=== PATIENT | female | born 2000 | race Caucasian/White ===

== ENCOUNTER 2024-08-02 16:03 | Emergency (ER) | payer MEDICAID ==
[~2024-08-02] VITALS: Ht 165.1 cm; Wt 64.0 kg
[2024-08-02 16:09] VITALS: TEMP 97.9
[2024-08-02] MEDS ORDERED: ESOM20CA31 PO (16:15)
[2024-08-02] MEDS ORDERED: FAMO20 PO (16:15)
[2024-08-02 16:39] LABS: BASOPHILS % (AUTO) 0.3 % (0.0-2.0); EOSINOPHILS % (AUTO) 0 % (1.0-6.0); HEMATOCRIT 39.5 % (36-46); HEMOGLOBIN 13.4 g/dL (12.0-16.0); LYMPHOCYTES # (AUTO) 0.8 K/uL (1.0-4.8); LYMPHOCYTES % (AUTO) 8.7 % (22.0-44.0); MEAN CORPUSCULAR HEMOGLOBIN 31.2 pg (26.0-34.0); MEAN CORPUSCULAR HGB CONC 33.9 G/dL (31.0-37.0); MEAN CORPUSCULAR VOLUME 92 fL (80-100); MONOCYTES # (AUTO) 0.4 K/uL (0.1-1.0); MONOCYTES % (AUTO) 4.3 % (2.0-9.0); NEUTROPHILS # (AUTO) 7.9 K/uL (1.8-7.7); PLATELET COUNT (AUTO) 289 K/uL (150-450); RED BLOOD CELL COUNT(AUTO) 4.29 MIL/uL (4.00-5.20); RED CELL DISTRIBUTION WIDTH 13.8 % (11.5-14.5); WHITE BLOOD COUNT (AUTO) 9.1 K/uL (4.5-11.0)
[2024-08-02] MEDS ORDERED: FAMO40TA7 PO (16:39)
[2024-08-02] MEDS ORDERED: ESOM40CA66 PO (16:39)
[2024-08-02 16:41] LABS: NEUTROPHILS % (AUTO) 86.7 % (40.0-70.0)
[2024-08-02 16:56] LABS: ALANINE AMINOTRANSFERASE 20 U/L (12-78); ALBUMIN 4.3 g/dL (3.4-5.0); ALKALINE PHOSPHATASE 88 U/L (46-116); ANION GAP 16 mmol/L (8-16); ASPARTATE AMINOTRANSFERASE 23 U/L (15-37); CARBON DIOXIDE 22 mmol/L (22-29); CHLORIDE 100 mmol/L (98-107); CREATININE 0.68 mg/dL (0.60-1.30); GLOMERULAR FILTR. RATE CALC > 60 mL/min (>60); GLUCOSE,RANDOM 102 mg/dL (70-110); HCG,QUANTITATIVE < 1 mIU/mL (0-6); LIPASE 16 U/L (16-77); POTASSIUM 3.5 mmol/L (3.5-5.1); SODIUM SERUM 138 mmol/L (136-145); UREA NITROGEN, BLOOD 9 mg/dL (7-18)
[2024-08-02] MEDS: MAG HYDROX/ALUMINUM HYD/SIMETH 30 ML SUSPENSION UDCUP PO ONE (16:56)
[2024-08-02] MEDS: ONDANSETRON HCL 4 MG/2 ML VIAL IVP ONE (16:56)
[2024-08-02] MEDS: SODIUM CHLORIDE 0.9% 1,000 ML IV ONE (16:56)
[2024-08-02 17:01] LABS: CALCIUM, TOTAL 9.6 mg/dL (8.8-10.5)
[2024-08-02] MEDS: FAMOTIDINE 20 MG/2 ML VIAL IVP ONE (17:08)
[2024-08-02 17:13] LABS: APPEARANCE,URINE CLEAR (CLEAR); BILIRUBIN,URINE NEGATIVE (NEGATIVE); COLOR,URINE LIGHT YELLOW (YELLOW); GLUCOSE, URINE (UA) NEGATIVE (NEGATIVE); KETONES,URINE =>150 mg/dL (NEGATIVE); LEUKOCYTE ESTERASE ,URINE NEGATIVE (NEGATIVE); NITRATE,URINE NEGATIVE (NEGATIVE); OCCULT BLOOD,URINE NEGATIVE (NEGATIVE); PROTEIN,URINE TRACE mg/dL (NEGATIVE); SPECIFIC GRAVITIY, URINE 1.026 (1.003-1.030); UROBILINOGEN,URINE <=1.0 mg/dL (<=1.0)
[2024-08-02] MEDS ORDERED: SODIUM CHLORIDE 0.9% 100 ML ONE (17:16)
[2024-08-02] MEDS ORDERED: IOHEXOL 350 MG/ML 100 ML VIAL ONE (17:16)
[2024-08-02] MEDS ORDERED: 0.9% SODIUM CHLORIDE 10 ML SYRINGE IVP ONE (17:16)
[2024-08-02 18:50] VITALS: BP 144/92; PULSE 57; RESP 16; O2SAT 100
[2024-08-02] MEDS: METOCLOPRAMIDE HCL 5 MG/ML 2 ML VIAL IVP ONE (18:57)
[2024-08-02] MEDS: DiphenhydrAMINE HCL 50 MG/ML VIAL IVP ONE (18:58)
[2024-08-02] MEDS ORDERED: ONDA-104 PO (19:17)
== END 2024-08-02 19:48 | disposition home or self-care (01) ==
LOC: EMS 16:03
DX: R11.2 Nausea with vomiting, unspecified (principal); F12.90 Cannabis use, unspecified, uncomplicated; K76.0 Fatty (change of) liver, not elsewhere classified; Z88.0 Allergy status to penicillin; Z87.11 Personal history of peptic ulcer disease
CPT/HCPCS: 99285; 74177; 96374; 96375; 96361; 80048; 80076; 81003; 83690; 84702; 85025; 36415; 93005; Q9967; J1200; J3490; J2765; J2405; J7030; J7050